=== PATIENT | female | born 1965 ===

== ENCOUNTER 2021-12-09 10:45 | Outpatient (RCR) | payer BC | END 2021-12-15 | LOC: PT 10:45 | PROVIDERS: ATTEND Specialist | DX: M16.12 Unilateral primary osteoarthritis, left hip (principal); M70.62 Trochanteric bursitis, left hip; M25.552 Pain in left hip; M62.81 Muscle weakness (generalized) ==

== ENCOUNTER 2021-12-22 11:00 | Outpatient (RCR) | payer BC | END 2022-01-12 | LOC: PT 11:00 | PROVIDERS: ATTEND Specialist | DX: M16.12 Unilateral primary osteoarthritis, left hip (principal); M70.62 Trochanteric bursitis, left hip; M25.552 Pain in left hip; M62.81 Muscle weakness (generalized) ==

== ENCOUNTER 2022-03-13 10:00 | Outpatient (RCR) | payer BC | END 2022-03-14 | LOC: PT 10:00 | PROVIDERS: ATTEND Specialist | DX: M16.12 Unilateral primary osteoarthritis, left hip (principal); M70.62 Trochanteric bursitis, left hip; M62.81 Muscle weakness (generalized); M25.552 Pain in left hip | CPT/HCPCS: 97139 ==

== ENCOUNTER 2022-03-23 16:00 | Outpatient (RCR) | payer BC | END 2022-04-14 | LOC: PT 16:00 | PROVIDERS: ATTEND Specialist | DX: M16.12 Unilateral primary osteoarthritis, left hip (principal); M70.62 Trochanteric bursitis, left hip; M62.81 Muscle weakness (generalized); M25.552 Pain in left hip ==